=== PATIENT | male | born 1955 | race Caucasian/White ===

== ENCOUNTER → 2022-02-27 | Outpatient (CLI) | payer MEDICARE ==
[2022-02-27 18:54] LABS: HGB 12.4 g/dL (13.0-17.0); MCH 30.5 pg (27.0-32.0); MCHC 31.8 g/dL (32.0-37.0); MCV 95.8 fL (80.0-97.0); Mean Platelet Volume 10.3 fL (9.5-12.2); NRBC Per 100 WBC 0 /100 WBCS (0.0-0.0); Platelet Count 166 X 10*3/uL (140-440); RBC 4.07 X 10*6/uL (4.40-5.60); RDW 23.1 % (11.5-14.5)
[2022-02-27 20:10] LABS: Basophils # (A) 0.08 X 10*3/uL (0.00-0.10); Basophils % (A) 1.1 %; Eosinophils # (A) 0.11 X 10*3/uL (0.04-0.35); Eosinophils % (A) 1.5 %; Immature Grans, Automated 0.3 %; Lymphocytes # (A) 2.77 X 10*3/uL (0.90-5.00); Lymphocytes % (A) 38.5 %; Monocytes # (A) 1.19 X 10*3/uL (0.20-1.00); Monocytes % (A) 16.5 %; Neutrophils # (A) 3.03 X 10*3/uL (1.80-7.70); Neutrophils % (A) 42.1 %
[2022-02-27 20:11] LABS: Anisocytosis (M) 2+
== END | disposition home or self-care (01) ==
LOC: LABWHC1 11:32
DX: C20 Malignant neoplasm of rectum (principal)
CPT/HCPCS: 36415; 85025